=== PATIENT | male | born 1985 | race Two or more races ===

== ENCOUNTER 2019-06-05 21:58 | Emergency (ER) | payer SELFPAY ==
[~2019-06-05] VITALS: Ht 172.7 cm; Wt 86.2 kg
[2019-06-06 00:35] VITALS: BP 122/60
== END 2019-06-06 02:31 | disposition home or self-care (01) ==
LOC: ER 21:58
DX: J11.1 Influenza due to unidentified influenza virus with other respiratory manifestations (principal); J03.00 Acute streptococcal tonsillitis, unspecified; J98.11 Atelectasis
CPT/HCPCS: 71046; 87804; 87880

== ENCOUNTER 2024-03-17 05:06 | Emergency (ER) | payer MEDICAID, OTHER ==
[~2024-03-17] VITALS: Ht 172.7 cm; Wt 78.6 kg
[2024-03-17 05:28] LABS: Basophils # (auto) 0 10 ^3/uL (0-0.2); Basophils % (auto) 0.4 % (0.0-2.0); Eosinophils # (auto) 0.2 10 ^3/uL (0-0.8); Hematocrit 45.8 % (41.0-53.0); Hemoglobin 15.4 g/dL (13.5-17.5); Lymphocytes # (auto) 5.5 10 ^3/uL (0.4-5.4); Lymphocytes % (auto) 49.2 % (10.0-50.0); Mean Corpuscular Hemoglobin 30.5 pg (28.0-32.0); Mean Corpuscular Hgb Conc. 33.6 g/dL (32.0-36.0); Mean Corpuscular Volume 90.7 fL (80.0-100.0); Monocytes # (auto) 0.7 10 ^3/uL (0-1.3); Monocytes % (auto) 6.7 % (0.0-12.0); Neutrophils # (auto) 4.6 10 ^3/uL (1.6-8.6); Neutrophils % (auto) 41.7 % (37.0-80.0); Nucleated Red Blood Cells % 0.1 %; Platelet Count (auto) 241 10^3/uL (140-450); Red Blood Cells 5.05 10^6/uL (4.5-5.90); Red Cell Distribution Width 13.8 % (11.8-14.3); White Blood Cell 11.1 10^3/uL (4.4-10.8)
[2024-03-17 05:57] LABS: Alanine Aminotransferase 24 U/L (7-40); Alkaline Phosphatase 81 U/L (46-116); Anion Gap 12 (5-15); Aspartate Aminotransferase 18 U/L (13-40); BUN/Creatinine Ratio 13.3 (10.0-20.0); Blood Urea Nitrogen 13 mg/dL (9-23); Calcium 9.6 mg/dL (8.7-10.4); Carbon Dioxide 22 mmol/L (20-31); Chloride 104 mmol/L (98-107); Glucose 142 mg/dL (74-106); Potassium 3.5 mmol/L (3.5-5.1); Sodium 138 mmol/L (136-145)
[2024-03-17 05:58] LABS: Albumin 4.6 g/dL (3.2-4.8); Total Protein 7.9 g/dL (5.7-8.2)
[2024-03-17 08:36] LABS: Urine Bacteria None Seen /hpf (None Seen)
[2024-03-17 08:40] VITALS: BP 114/73; PULSE 69; RESP 20; TEMP 98.5; O2SAT 100
[2024-03-17 08:51] LABS: Urine Blood Negative /uL (Negative); Urine Clarity Clear (Clear); Urine Color Light-Yellow (Yellow); Urine Protein, UAD 1+ (Negative); Urine Specific Gravity 1.019 (1.001-1.035); Urine Urobilinogen Normal (Negative); Urine WBC 3 /hpf (0 - 3); Urine pH 5.5 (5.0-9.0)
== END 2024-03-17 08:49 | disposition home or self-care (01) ==
LOC: ER 05:06
DX: R07.89 Other chest pain (principal); R51.9 Headache, unspecified
CPT/HCPCS: 36415; 70450; 71045; 80053; 81001; 84484; 85025; 93005